=== PATIENT | male | born 2000 | race Caucasian/White ===

== ENCOUNTER 2022-03-28 11:27 | Emergency (ER) | payer BC, SELFPAY ==
[2022-03-28 12:11] VITALS: BP 146/85; PULSE 72; RESP 20; TEMP 36.2; O2SAT 99; BMI 41.4
--- NOTE | 2022-03-28 14:38 | CRLHL7_ITS ---
For Patients: As a result of the Cures Act, medical imaging exams and procedure reports are released immediately into your electronic medical record. You may view this report before your referring provider. If you have questions, please contact your health care provider. Indication: Injury Technique: Three views of the right hand Comparison: No comparison Findings: Normal alignment no acute fractures are seen. Dictated by Faviola Streeter MD @ 03/28/2022 3:20:55 PM (Electronically Signed)
[2022-03-28 15:16] VITALS: BP 143/82; PULSE 81; RESP 20; TEMP 36.6; O2SAT 100
--- NOTE | 2022-03-28 16:23 | ED.GENADULT ---
HPI - General Adult General Time Seen by Provider: 16:23 Date Seen: 03/28/22 Chief complaint: Extremity Pain/Injury, Upper Stated complaint: Left finger injury Time Seen by Provider: 03/28/22 13:59 Source: patient Mode of arrival: ambulatory Limitations: no limitations History of Present Illness HPI narrative: Patient is a 21-year-old male who fell on his wrist and middle finger on the right hand. He had has had pain in that area. He works at [employer]. He has had trouble with that. He notices little bit of swelling over that area as well. He had an x-ray done prior to my arrival that might by my review she looks unremarkable of his wrist and finger on the right-hand. No open wounds, no other complaints no other injuries Related Data Home Medications Medication Instructions Recorded Confirmed No Known Home Medications 03/28/22 03/28/22 Allergies Allergy/AdvReac Type Severity Reaction Status Date / Time No Known Drug Allergies Allergy Verified 03/28/22 12:14 Review of Systems Narrative: No history of prior hand or finger injury or wrist injury PFSH PFS Social History Smoking Status: Never smoker Do you use any of these nicotine containing products: None How often do you have a drink containing alcohol: never How many standard drinks containing alcohol do you have on a typical day: 1 or 2 AUDIT-C Alcohol total score: 0 Non-prescribed substance use: denies use Exam Narrative: Exam Narrative: Objective: Vital signs unremarkable patient has a normal exam is right hand mild tenderness over his mid hand and over the proximal phalanx dorsally of the long finger, range of motion normal, no point tenderness Const: Vital Signs, click to edit/add: Vital Signs - 24 hr 03/28/22 12:11 03/28/22 15:16 Temperature 97.2 F L 97.9 F Pulse Rate [Pulse Oximeter] 72 81 Respiratory Rate 20 20 Blood Pressure [Ri ght Upper Arm] 146/85 H 143/82 H Pulse Oximetry 99 100 Oxygen Delivery Me thod Room Air Room Air Course Vital Signs Vital signs: Initial Vital Signs Temperature 97.2 F L 03/28/22 12:11 Temperature Source Temporal Artery Scan 03/28/22 12:11 Pulse Rate 72 03/28/22 12:11 Pulse Rhythm 03/28/22 12:11 Respiratory Rate 03/28/22 12:11 Blood Pressure 146/85 H 03/28/22 12:11 Blood Pressure Mean 105 03/28/22 12:11 Pulse Oximetry 99 03/28/22 12:11 Oxygen Delivery Method 03/28/22 12:11 Vital Signs Temperature 97.2 F L 03/28/22 12:11 Pulse Rate 72 03/28/22 12:11 Respiratory Rate 20 03/28/22 12:11 Blood Pressure 146/85 H 03/28/22 12:11 Pulse Oximetry 99 03/28/22 12:11 Oxygen Delivery Method 03/28/22 12:11 Temperature 97.9 F 03/28/22 15:16 Pulse Rate 81 03/28/22 15:16 Respiratory Rate 20 03/28/22 15:16 Blood Pressure 143/82 H 03/28/22 15:16 Pulse Oximetry 100 03/28/22 15:16 Oxygen Delivery Method 03/28/22 15:16 Medical Decision Making MDM Narrative Medical decision making narrative: X-ray of the hand and finger and distal wrist look unremarkable by my review. Recommend a wrist brace, Advil and Tylenol as needed, off work for 3 days icing on aggressive basis, follow up with primary care for work return to work recommendations Discharge Plan Discharge Clinical Impression: Sprain and strain of wrist Patient Disposition: Home w/ Parent or Adult Condition: Stable Additional Instructions: Recommend off work for 3 days icing, Advil, recheck with primary care at that time for return to work instructions. Patient works at [employer]. Return problems or concerns sooner as mention. Activity Level: Light activity Discharge Diet: Regular Prescriptions: No Action No Known Home Medications Stand Alone Forms: [facility] Info Instructions
--- NOTE | 2022-04-05 12:09 | ED.NURSE ---
Pt called inquiring about work restriction for prior visit. Pt had already been given a work note. Advised to follow up with primary care per DC instructions or use the note he already has.
== END 2022-03-28 16:41 | disposition home or self-care (01) ==
LOC: ED 16:37
PROVIDERS: Emergency Provider Family Medicine
DX: S63.501A Unspecified sprain of right wrist, initial encounter (principal); S66.811A Strain of other specified muscles, fascia and tendons at wrist and hand level, right hand, initial encounter; W19.XXXA Unspecified fall, initial encounter
CPT/HCPCS: 73130; 99283

== ENCOUNTER 2023-05-16 13:07 | Emergency (ER) | payer OTHER, SELFPAY ==
[2023-05-16 13:09] VITALS: BP 148/54; PULSE 73; RESP 18; TEMP 37.1; O2SAT 97; BMI 43.4
--- NOTE | 2023-05-16 13:25 | ED.GENADULT ---
HPI - General Adult General Chief complaint: Extremity Pain/Injury, Lower Stated complaint: R ankle pain Time Seen by Provider: 05/16/23 13:25 History of Present Illness HPI narrative: patient accidently dropped a bowling bag on the right lower ankle lateral side and has some bruising, swelling, hurts to bear weight on the right foot. has a cam walker on from girlfriend . pain is worse today. 22-year-old young man presenting to the emergency department with complaint of right ankle pain. Apparently was carrying a bag with 3 bowling balls in it and trying to swing it up into his vehicle. In the process it caught, he went down and it landed on the outside of his right ankle or foot. Sounds like this occurred yesterday. Is able to ambulate with a cam boot obtained from girlfriend who accompanies him here today. Pain seems to be worse though. No other injuries were sustained at that time. Related Data Home Medications Medication Instructions Recorded Confirmed No Known Home Medications 03/28/22 05/16/23 Allergies Allergy/AdvReac Type Severity Reaction Status Date / Time No Known Drug Allergies Allergy Verified 05/16/23 13:15 Review of Systems Status of ROS: Reports: 6 or more systems reviewed and unremarkable except as noted in History and below [facility] Social History Smoking Status: Never smoker Do you use any of these nicotine containing products: None How often do you have a drink containing alcohol: never How many standard drinks containing alcohol do you have on a typical day: 1 or 2 AUDIT-C Alcohol total score: 0 Non-prescribed substance use: denies use Exam Narrative: Exam Narrative: Pleasant. NAD. Seated in wheelchair. Right leg in question is exposed. There is some subtle swelling over the dorsal proximal lateral aspect of his foot. Is sore regionally to palpation. Not discretely sore though on the medial or lateral malleoli. Not exactly sore at the base of the 5th metatarsal. Some soreness about the navicular. No plantar bruising. Const: Vital Signs, click to edit/add: Vital Signs - 24 hr 05/16/23 13:09 Temperature 98.8 F Pulse Rate [Right Pulse Oximeter] 73 Respiratory Rate 18 Blood Pressure [Ri ght Upper Arm] 148/54 H Pulse Oximetry 97 Oxygen Delivery Me thod Room Air Documenting provider has reviewed patient's vital signs: yes Course Vital Signs Vital signs: Initial Vital Signs Temperature 98.8 F 05/16/23 13:09 Temperature Source Temporal Artery Scan 05/16/23 13:09 Pulse Rate 73 05/16/23 13:09 Respiratory Rate 18 05/16/23 13:09 Blood Pressure 148/54 H 05/16/23 13:09 Blood Pressure Mean 85 05/16/23 13:09 Blood Pressure Position Sitting 05/16/23 13:09 Pulse Oximetry 97 05/16/23 13:09 Oxygen Delivery Method Room Air 05/16/23 13:09 Vital Signs Temperature 98.8 F 05/16/23 13:09 Pulse Rate 73 05/16/23 13:09 Respiratory Rate 18 05/16/23 13:09 Blood Pressure 148/54 H 05/16/23 13:09 Pulse Oximetry 97 05/16/23 13:09 Oxygen Delivery Method Room Air 05/16/23 13:09 Temperature 98.8 F 05/16/23 13:09 Pulse Rate 73 05/16/23 13:09 Respiratory Rate 18 05/16/23 13:09 Blood Pressure 148/54 H 05/16/23 13:09 Pulse Oximetry 97 05/16/23 13:09 Oxygen Delivery Method Room Air 05/16/23 13:09 Medical Decision Making MDM Narrative Medical decision making narrative: I suspect more of a contusion though there was significant weight that fell upon his lower leg. Pain is worse today though and there is some swelling maybe some subtle bruising/darkening as well. Per his concern, will proceed with x-ray of the foot. Does not feel that he needs any treatment at this time. Review of foot x-ray by me appears to be WNL. Sounds like Inocencio wraps are available provided by girlfriend. Still has this cam boot. Sounds like it fits about perfectly. See patient discharge plan Discharge Plan Discharge Clinical Impression: Contusion of foot Patient Disposition: Home w/ Parent or Adult Condition: Stable Additional Instructions: Might be best to try to stay off this foot over the next couple of days. Apply ice 2 to 3 times a day as discussed. Compression likely with Inocencio wrap. Can take up to 800 mg of ibuprofen and 1000 mg of acetaminophen per day. I will call you if Radiology sees anything more in your imaging. Follow-up if just not improving in 7-10 days. Prescriptions: No Action No Known Home Medications Follow Up/Referrals: Provider,Not a Local [Primary Care Provider] - Stand Alone Forms: [employer] Info Instructions
--- NOTE | 2023-05-16 13:34 | XR_ITS ---
Final Report Patient: GLENYS ARMENDARIZ Facility:?[facility] Patient ID:?[id number] Site Patient ID:?[id number]. Site :?[id number] Study:?XRay Extremity Right 3 VIEWS-05/16/2023 1:57:40 PM Ordering Physician:ABHIJEET Final Report: Indication: Trauma. Technique: Right foot 3 views. Comparison: None. Findings: Bones: Alignment is normal. No fractures or bone lesions. Joint spaces: Unremarkable. Soft tissues: Unremarkable. Impression: No sign of acute injury. Dictated by Young Bailey MD @ 05/16/2023 3:31:29 PM (Electronic Signature)
== END 2023-05-16 14:54 | disposition home or self-care (01) ==
PROVIDERS: Emergency Provider Family Medicine
DX: S90.31XA Contusion of right foot, initial encounter (principal); W20.8XXA Other cause of strike by thrown, projected or falling object, initial encounter
CPT/HCPCS: 73630; 99283; 99284

== ENCOUNTER 2024-11-04 17:43 | Emergency (ER) | payer OTHER, SELFPAY ==
[2024-11-04 17:49] VITALS: BP 167/63; PULSE 87; RESP 18; TEMP 36.9; O2SAT 98; BMI 48.8
--- NOTE | 2024-11-04 19:50 | CRLHL7_ITS ---
For Patients: As a result of the Century Cures Act, medical imaging exams and procedure reports are released immediately into your electronic medical record. You may view this report before your referring provider. If you have questions, please contact your health care provider. Indication: Trauma. Technique: Bilateral knees, 5 views. Comparison: None. Findings/Impression: Bones: Alignment is normal. No displaced fractures or bone lesions. Joint spaces: Unremarkable. Soft tissues: Unremarkable. Dictated by Maico Jade MD @ 11/04/2024 9:00:04 PM (Electronically Signed)
--- NOTE | 2024-11-04 19:50 | ED_ITS ---
HPI - Extremity Injury (Lower) General Time Seen by Provider: 19:50 Date Seen: 11/04/24 Chief Complaint: Extremity Pain/Injury, Lower Stated Complaint: fell, leg injury Time Seen by Provider: 11/04/24 19:46 Source: patient, family and RN notes reviewed Mode of arrival: wheelchair Limitations: no limitations History of Present Illness HPI Narrative: Kuldeep is a 24-year-old male previously healthy per his report who comes to the emergency room after a fall at [employer]. He states that there was water all over and that there was no wet floor sign and he slipped. He describes almost doing the splits is trying to grab shelving and causing that to fall, landing on his knees and somehow twisting his ankle in the process. He denies any head injury or loss of consciousness. Since that time he is unable to walk on his left ankle. He describes pain all over his foot. He is unable to localize on the foot or the ankle. He also notes bilateral knee pain. His significant other notice that there appears to be new bruising on the inside of his left thigh and upper so aspect of his lower leg. He is not currently on any blood thinners. No other complaints at this time. Movement makes the pain worse. He is currently with ice on his ankle. He has not yet taken anything for discomfort. Related Data Home Medications ?Medication ?Instructions ?Recorded ?Confirmed No Known Home Medications 03/28/2210/26 Allergies Allergy/AdvReac Type Severity Reaction Status Date / Time No Known Drug Allergies Allergy Verified 11/04/24 17:53 [facility] Social History Smoking Status: Current some day smoker What tobacco products do you use: cigarettes Do you use any of these nicotine containing products: None How often do you have a drink containing alcohol: never How many standard drinks containing alcohol do you have on a typical day: 1 or 2 AUDIT-C Alcohol total score: 0 Non-prescribed substance use: denies use Exam Narrative: Exam Narrative: Alert and oriented. No acute distress. Head is atraumatic normocephalic. No midline cervical tenderness. Palpation of thoracic spine without discomfort. Mentation and speech is normal. EOM is full face symmetrical no respiratory di stress. Examination of the knees shows a quarter-sized area of ecchymosis noted on the left lower knee. No surrounding effusion. Not warm to the touch. Area of discoloration noted on in her lower thigh is consistent with varicosities. Palpation down the tibia shows discomfort in the distal 3rd. No deformity is noted. Patient noted to have point tenderness over both the lateral and medial malleolus. No edema noted. Complaints of tenderness over the dorsum of the foot 5th metatarsal. Unable to localize maximal tenderness. Distally sensation intact. Good capillary refill. On the right palpation of the right knee yield discomfort. However, no ecchymosis or effusion is noted. On the legs there are scabs in various stages of healing. A few open wounds on the left leg as well.. Patient and family telling me that this is from something else and not from the fall today Const: Vital Signs, click to edit/add: Vital Signs - 24 hr 11/04/24 17:49 11/04/24 21:18 Temperature 98.5 F 97.6 F Pulse Rate [Right Pulse Oximeter] 87 82 Respiratory Rate 18 18 Blood Pressure [Ri ght Upper Arm] 167/63 H 139/104 H Pulse Oximetry 98 97 Oxygen Delivery Me thod Room Air Room Air Documenting provider has reviewed patient's vital signs: yes Course Course ED Course: Differential diagnosis includes but is not limited to fracture, soft tissue injury, ligamental or tendon injury. At this time do not see significant deformity or edema. Will order x-rays of bilateral knees left ankle and left foot. Vital Signs Vital signs: Initial Vital Signs Temperature 98.5 F 11/04/24 17:49 Temperature Source Temporal Artery Scan 11/04/24 17:49 Pulse Rate 87 11/04/24 17:49 Pulse Rhythm Regular 11/04/24 17:49 Pulse Strength 3+ Normal 11/04/24 17:49 Respiratory Rate 18 11/04/24 17:49 Blood Pressure 167/63 H 11/04/24 17:49 Blood Pressure Mean 97 11/04/24 17:49 Blood Pressure Position Sitting 11/04/24 17:49 Pulse Oximetry 98 11/04/24 17:49 Oxygen Delivery Method Room Air 11/04/24 17:49 Vital Signs Temperature 98.5 F 11/04/24 17:49 Pulse Rate 87 11/04/24 17:49 Respiratory Rate 18 11/04/24 17:49 Blood Pressure 167/63 H 11/04/24 17:49 Pulse Oximetry 98 11/04/24 17:49 Oxygen Delivery Method Room Air 11/04/24 17:49 Temperature 97.6 F 11/04/24 21:18 Pulse Rate 82 11/04/24 21:18 Respiratory Rate 18 11/04/24 21:18 Blood Pressure 139/104 H 11/04/24 21:18 Pulse Oximetry 97 11/04/24 21:18 Oxygen Delivery Method Room Air 11/04/24 21:18 MDM - Extremity Injury (Lower) MDM Narrative Medical decision making narrative: 1. Soft tissue injury-to both knees which have negative x-rays as well as to left foot and ankle. Ibuprofen and Tylenol as needed for discomfort. Ice elevation as needed. 2. Suspect Left ankle sprain-very challenging to find the point of maximal discomfort. It was unusual that both malleoli would have discomfort as well as 5th metatarsal and the navicular. No obvious bruising at this time. I do not note any obvious edema at this time. But patient certainly is tender throughout. Of fortunately no evidence of fracture on x-ray. Would recommend Inocecnio wrap at this time and cam boot. Crutches may be used and partial weight- bearing is recommended for the next 48 hours. After that he may remove his ankle from the boot and try walking. For ongoing pain or problems recommend follow-up with primary MD or Orthopedics. 3. Disposition-home at this time. Suggested follow-up if not improving in the next 48 hours. Return to the ER for worsening symptoms. Medical Records Attestation: I reviewed the patient's medical records. Imaging Data Bilateral knee x-ray: Attestation: I have reviewed the pertinent imaging results. My impression: No obvious fracture Radiologist's impression: Findings/Impression: Bones: Alignment is normal. No displaced fractures or bone lesions. Joint spaces: Unremarkable. Soft tissues: Unremarkable. Left ankle x-ray: Attestation: I have reviewed the pertinent imaging results. My impression: I do not note any acute fracture Radiologist's impression: ones: Alignment is normal. No displaced fractures or bone lesions. Joint spaces: Unremarkable. Soft tissues: Unremarkable. Left foot x-ray: Attestation: I have reviewed the pertinent imaging results. My impression: No obvious fracture Radiologist's impression: Comparison: None. Findings/Impression: Bones: Alignment is normal. No displaced fractures or bone lesions. Joint spaces: Unremarkable. Soft tissues: Unremarkable. Discharge Plan Discharge Clinical Impression: Soft tissue injury, Left ankle sprain Patient Disposition: Home, Self-Care Condition: Unchanged Additional Instructions: Ibuprofen or Tylenol as needed for discomfort Ice to areas of pain. Inocencio wrap to left ankle. Cam boot for the next 48 hours. You can then removed your foot from the boot and start moving it and walking on it. If you have continued pain follow-up with your primary clinic or Orthopedics. Orthopedics can be reached at [phone]. Try to elevate ankle and ice as needed. -please to not ice on bare skin. Prescriptions: No Action No Known Home Medications Follow Up/Referrals: Provider,Not a Local [Primary Care Provider, Family Practice] Stand Alone Forms: [employer] Info Instructions
--- NOTE | 2024-11-04 19:50 | CRLHL7_ITS ---
For Patients: As a result of the Century Cures Act, medical imaging exams and procedure reports are released immediately into your electronic medical record. You may view this report before your referring provider. If you have questions, please contact your health care provider. Indication: Trauma. Technique: Left ankle, 3 views. Comparison: None. Findings/Impression: Bones: Alignment is normal. No displaced fractures or bone lesions. Joint spaces: Unremarkable. Soft tissues: Unremarkable. Dictated by Maico Jade MD @ 11/04/2024 8:57:51 PM (Electronically Signed)
--- NOTE | 2024-11-04 19:50 | CRLHL7_ITS ---
For Patients: As a result of the Century Cures Act, medical imaging exams and procedure reports are released immediately into your electronic medical record. You may view this report before your referring provider. If you have questions, please contact your health care provider. Indication: Trauma. Technique: Left foot, 3 views. Comparison: None. Findings/Impression: Bones: Alignment is normal. No displaced fractures or bone lesions. Joint spaces: Unremarkable. Soft tissues: Unremarkable. Dictated by Maico Jade MD @ 11/04/2024 8:58:59 PM (Electronically Signed)
[2024-11-04 21:18] VITALS: BP 139/104; PULSE 82; RESP 18; TEMP 36.4; O2SAT 97
== END 2024-11-04 21:39 | disposition home or self-care (01) ==
PROVIDERS: Emergency Provider Family Medicine
DX: S93.402A Sprain of unspecified ligament of left ankle, initial encounter (principal); X50.1XXA Overexertion from prolonged static or awkward postures, initial encounter; M79.9 Soft tissue disorder, unspecified
CPT/HCPCS: 73562; 73610; 73630; 99283; 99284

== ENCOUNTER 2025-02-18 11:13 | Outpatient (CLI) | payer OTHER, SELFPAY ==
--- NOTE | 2025-02-26 17:11 | W.PM.SLEEP ---
Sleep Study Details Details Interpreting Provider: Clayton Pruitt Date of Sleep Study: 02/18/25 Sleep Study Details: STUDY TYPE:?Home sleep study ? BMI:?48.82 ORDERING PROVIDER:?Dr. Parrish INDICATION: The patient is a 24-year-old male who presents for evaluation of sleep apnea. Vital Signs: BMI is 48.82. ? SLEEP SUMMARY:?RESULTS Home sleep study: AHI 18.3 per rule [place], 14.4 per CMS guideline. Low oxygen 83, 4.5% of study oxygen less than 90. Snoring 98.2%. Periocular movements of sleep not recorded. Cardiac range 48 to 109, mean 75.8 bpm. RESPIRATORY SUMMARY:? [] PERIODIC LIMB MOVEMENTS OF SLEEP:? [] CARDIAC:? [] IMPRESSION:?ASSESSMENT AND PLAN 1. Moderate obstructive sleep apnea. The home sleep study showed an AHI of 18.3 per rule [place] and 14.4 per CMS guideline, with low oxygen levels at 83% and snoring at 98.2%. Treatment options include CPAP or a dental appliance. Weight loss is also recommended. RECOMMENDATION: []
== END 2025-02-18 11:14 | disposition home or self-care (01) ==
LOC: SLEEP 11:14
PROVIDERS: PCP Family Medicine; Visit Provider Family Medicine
DX: G47.33 Obstructive sleep apnea (adult) (pediatric) (principal)
CPT/HCPCS: 95806